=== PATIENT | female | born 1960 | race African-American/Black ===

== ENCOUNTER 2024-10-10 13:42 | Outpatient (AMB) | payer BC, SELFPAY ==
[2024-10-10 14:16] VITALS: BP 128/76; PULSE 59; O2SAT 99; BMI 36.4
--- NOTE | 2024-10-10 14:16 | A.OFFVIS_ITS ---
Vital Signs 10/10/24 14:16 Height 5 ft 7 in Weight 232 lb 8 oz BMI 36.4 BP 128/76 Blood Pressure Location Rt brachial Position Sitting Pulse 59 Pulse Source Pulse Oximeter Pulse Oximetry (%) 99 Oxygen Delivery Method Room Air Intake Visit Reasons: chronic cough Allergies Penicillins Allergy (Mild, Verified 10/10/24 14:01) Gastrointestinal Upset HPI HPI chronic cough: Details: Elaine is a pleasant 64 year old female, never smoker with underlying asthma, GERD and allergic rhinitis. She was referred by PCP for pulmonary evaluation for chronic cough. She reports cough is dry and occasionally productive with white sputum, wheezing and dyspnea with moderate exertion. Denies chest tightness or chest congestion. She was sent for CXR which was reportedly unremarkable. She was given albuterol MDI as well as prednisone with almost complete resolution of cough however once prednisone was completed, cough recurred. She reports asthma not formally diagnosed however on referral. Never required hospitalizations or intubations related to respiratory distress. She reports seasonal allergies, previously did allergen immunotherapy injections x 10+ years, stopped approximately 8 years ago. She takes xzyal PRN with moderate effect. She denies any recent allergy testing. She denies any pets. She reports multiple first degree family members with asthma. Review of Systems Const Denies chills, Denies excessive sweating, Denies fever(s), Denies headache(s) and Denies night sweats Eyes Denies dry eyes, Denies irritation and Denies itchy eyes ENT Reports Normal hearing present, Denies headache(s), Denies nasal congestion, Denies nasal discharge, Denies post nasal drip and Denies sore throat Card Denies chest pain, Denies chest pain at rest, Denies chest pain with activity, Denies claudication, Denies leg edema, Denies orthopnea and Denies paroxysmal nocturnal dyspnea Resp Denies chest congestion, Denies excessive phlegm production, Denies pain on inspiration, Denies pain with cough and Denies stridor Musc Denies myalgias Neuro Reports Normal hearing present and Denies headache(s) Endo Denies excessive sweating Austin/Lymph Denies lymphadenopathy Aller/Immun Denies itchy eyes and Denies seasonal rhinorrhea Physical Exam Const General: cooperative, healthy appearing, comfortable, no acute distress, well developed and alert Nutritional Appearance: obese Orientation/consciousness: patient oriented x3 Limitations: no limitations HEENT Head: Yes normal to inspection, Yes normocephalic and Yes atraumatic Ears: hearing grossly normal bilaterally and external ears normal Eyes General: appearance normal, both eyes and all related structures Eyelids: Yes eyelids normal Sclerae: sclerae normal EOM: EOMs intact bilaterally Neck Neck: Yes normal visual inspection and Yes no lymphadenopathy Lymphatic: no lymphadenopathy noted Chest Chest palpation & inspection: normal inspection of the chest Resp Effort & Inspection: normal respiratory effort, able to speak in complete sentences, no audible wheezes, no cough, no stridor, not tachypneic, no tripod positioning and no use of accessory muscles Auscultation: clear to auscultation bilaterally Cardio Jugular venous distension: no JVD Rate: regular rate Rhythm: regular rhythm Skin Other: warm, dry General skin exam: no rashes or lesions noted Neuro General: patient oriented x3 Cranial nerves: Yes Normal hearing present Cognition (Neuro): normal cognition Gait exam (Neuro): Normal gait present Extrem General: Yes normal to inspection, Yes capillary refill normal, Yes no clubbing, cyanosis or edema and Yes no pedal edema Psych Appearance: grossly normal and well kempt Speech and movement: Normal speech and movement present and Clear speech present Affect: normal affect Attitude: cooperative Thought process: Normal thought process present Thought content: Normal thought content present Insight: Good insight present (Psych) Judgement: Good judgement present (Psych) Assessment & Plan Assessment & Plan (1) Asthma: Code(s): J45.909 - Unspecified asthma, uncomplicated Category: Medical (2) Environmental allergies: Code(s): Z91.09 - Other allergy status, other than to drugs and biological substances Category: Medical (3) Chronic cough: Code(s): R05.3 - Chronic cough Category: Medical Plan Elaine presents for pulmonary evaluation for chronic cough likely related to poorly controlled asthma with an allergic component. Will send for PFT and RAST. Will also empirically start Breo. Discussed importance of good oral hygiene. All questions were answered and patient is in agreement of plan. Will followup in 6- 8 weeks or sooner if needed. Orders: Orders Complete Blood Count Auto Diff Today Z91.09 - Other allergy status, other than to drugs and biological substances Immunoglobulin E Today Z91.09 - Other allergy status, other than to drugs and biological substances Resp Allergy Profile Region I Today Z91.09 - Other allergy status, other than to drugs and biological substances PFT pulmonary function test Today J45.909 - Unspecified asthma, uncomplicated Medications: New fluticasone furoate-vilanterol 100-25 mcg/dose (Breo Ellipta) 1 inh inhalation DAILY 60 ea 3RF Coding Level of Care Code New Pt Level 4 (05666) Diagnoses Asthma J45.909 Environmental allergies Z91.09 Chronic cough R05.3
== END 2024-10-10 13:45 | disposition home or self-care (01) ==
LOC: HO.HPSW 13:42
PROVIDERS: PCP Internal Medicine; Referring Provider Internal Medicine; Visit Provider Nurse Practitioner Family
DX: J45.909 Unspecified asthma, uncomplicated (principal); Z91.09 Other allergy status, other than to drugs and biological substances; R05.3 Chronic cough
CPT/HCPCS: 99204

== ENCOUNTER 2024-10-10 14:14 | Outpatient (REF) | payer BC, SELFPAY ==
[2024-10-10 17:46] LABS: MANUAL DIFF FLAG NO
[2024-10-10 17:53] LABS: Basophils Absolute Auto 0.1 X10*3/uL (0.0-0.2); Basophils Percent Auto 1.3 % (0-2); Eosinophils Absolute Auto 0.1 X10*3/uL (0.0-0.4); Eosinophils Percent Auto 2.8 % (0-4); Hematocrit 36.2 % (37.0-47.0); Hemoglobin 11.4 g/dl (12.0-16.0); Imm Gran Abs Auto 0.02 X10*3/uL (0.00-0.03); Imm Gran Pct Auto 0.5 % (0.0-0.4); Lymphocytes Absolute Auto 1.3 X10*3/uL (1.2-4.9); Lymphocytes Percent Auto 33.3 % (20-40); Mean Corpuscular HGB Conc 31.5 g/dl (31.0-35.0); Mean Corpuscular Hemoglobin 28.5 pg (27.0-33.0); Mean Corpuscular Volume 90.5 fL (80.0-98.0); Mean Platelet Volume 9.7 fL (9.4-12.3); Monocytes Absolute Auto 0.6 X10*3/uL (0.1-1.2); Neutrophils Absolute Auto 1.9 x10*3/uL (2.0-8.3); Neutrophils Percent Auto 48.1 % (45-73); Platelet Count 257 X10*3/uL (160-400); Red Cell Distribution Width 14.8 % (11.0-16.0)
[2024-10-12 23:04] LABS: Class Alternaria alternata 0; Class Aspergillus fumigatus 0; Class Bermuda Grass 0; Class Birch 0; Class Cat Dander 0; Class Cladosporium herbarum 0; Class Cockroach 0; Class Common Ragweed 0; Class Cottonwood 0; Class Derm. pterony 0; Class Dermatophagoides farinae 0; Class Dog Dander 0; Class Elm 0; Class Maple Box Elder 0; Class Mountain Cedar 0; Class Mouse Urine Protein 0; Class Mugwort 0; Class Oak 0; Class Penicillium crysogenum 0; Class Rough Pigweed 0; Class Sheep Sorrel 0; Class Sycamore 0; Class Timothy Grass 0; Class Walnut Tree 0; Class White Ash 0; Class White Mulberry 0; D001 IgE D pteronyssinus <0.10 kU/L; D002 - IgE D farinae <0.10 kU/L; E001 - IgE Cat Dander <0.10 kU/L; E005 - IgE Dog Dander <0.10 kU/L; E072-IgE Mouse Urine <0.10 kU/L; G002 IgE Bermuda Grass <0.10 kU/L; G006 - IgE Timothy Grass <0.10 kU/L; I006-IgE Cockroach, German <0.10 kU/L; Immunoglobulin E 25 kU/L (<OR=114); Immunoglobulin E 26 kU/L (<OR=114); M001 IgE Penicillium chrysogen <0.10 kU/L; M002 - IgE Cladosporium herbar <0.10 kU/L; M003 - IgE Aspergillus fumigat <0.10 kU/L; M006 - IgE Alternaria alternat <0.10 kU/L; T001 IgE Maple/Box Elder <0.10 kU/L; T003 IgE Common Silver Birch <0.10 kU/L; T006 - IgE Cedar, Mountain <0.10 kU/L; T007 - IgE Oak, White <0.10 kU/L; T008 IgE Elm, American <0.10 kU/L; T010 - IgE Walnut <0.10 kU/L; T011 - IgE Maple Leaf Sycamore <0.10 kU/L; T014 - IgE Cottonwood <0.10 kU/L; T015 - IgE Ash, White <0.10 kU/L; T070 - IgE White Mulberry <0.10 kU/L; W001 - IgE Ragweed, Short <0.10 kU/L; W006 - IgE Mugwort <0.10 kU/L; W014 IgE Pigweed, Common <0.10 kU/L; W018 IgE Sheep Sorrel <0.10 kU/L
== END 2024-10-10 14:15 | disposition home or self-care (01) ==
LOC: HO.WFDLDS 14:14
PROVIDERS: Visit Provider Nurse Practitioner Family
DX: Z91.09 Other allergy status, other than to drugs and biological substances (principal)
CPT/HCPCS: 36415; 82785; 85025; 86003

== ENCOUNTER 2024-11-23 11:11 | Outpatient (AMB) | payer BC, SELFPAY ==
[2024-11-23 11:06] VITALS: BP 142/80; PULSE 72; O2SAT 99; BMI 35.9
--- NOTE | 2024-11-23 11:06 | A.OFFVIS_ITS ---
Vital Signs 11/23/24 11:06 Height 5 ft 7 in Weight 229 lb 6 oz BMI 35.9 BP 142/80 H Blood Pressure Location Rt brachial Position Sitting Pulse 72 Pulse Source Pulse Oximeter Pulse Oximetry (%) 99 Oxygen Delivery Method Room Air Intake Visit Reasons: chronic cough Allergies Penicillins Allergy (Mild, Verified 11/23/24 11:14) Gastrointestinal Upset HPI HPI chronic cough: Details: Elaine is a pleasant 64 year old female, never smoker with underlying asthma, GERD and allergic rhinitis. She was initially referred for chronic cough. At the last visit she was started on Breo, as she had been using albuterol frequently and reports near resolution of cough. She denies dyspnea, chest tightness or chest congestion. She was also sent for PFT which is scheduled later this month. She denies any visits to urgent care or hospitalizations related to respiratory distress since last visit. Today she presents to review RAST. [facility] Social History (Updated 11/23/24 @ 11:14 by Pascale Benavides [facility]) Patient Tobacco Use Status: Never used Tobacco Review of Systems Const Denies chills, Denies excessive sweating, Denies fever(s), Denies headache(s) and Denies night sweats Eyes Denies dry eyes, Denies irritation and Denies itchy eyes ENT Reports Normal hearing present, Denies headache(s), Denies nasal congestion, Denies nasal discharge, Denies post nasal drip and Denies sore throat Card Denies chest pain, Denies chest pain at rest, Denies chest pain with activity, Denies claudication, Denies leg edema, Denies orthopnea and Denies paroxysmal nocturnal dyspnea Resp Denies chest congestion, Denies excessive phlegm production, Denies pain on inspiration, Denies pain with cough and Denies stridor Musc Denies myalgias Neuro Reports Normal hearing present and Denies headache(s) Endo Denies excessive sweating Austin/Lymph Denies lymphadenopathy Aller/Immun Denies itchy eyes and Denies seasonal rhinorrhea Physical Exam Vital Signs: Last Vital Signs Pulse 72 11/23/24 11:06 BP 142/80 H 11/23/24 11:06 Pulse Ox 99 11/23/24 11:06 Oxygen Delivery Method Room Air 11/23/24 11:06 BMI result Body Mass Index 35.9 Const General: cooperative, healthy appearing, comfortable, no acute distress, well developed and alert Nutritional Appearance: obese Orientation/consciousness: patient oriented x3 Limitations: no limitations HEENT Head: Yes normal to inspection, Yes normocephalic and Yes atraumatic Ears: hearing grossly normal bilaterally and external ears normal Eyes General: appearance normal, both eyes and all related structures Eyelids: Yes eyelids normal Sclerae: sclerae normal EOM: EOMs intact bilaterally Neck Neck: Yes normal visual inspection and Yes no lymphadenopathy Lymphatic: no lymphadenopathy noted Chest Chest palpation & inspection: normal inspection of the chest Resp Effort & Inspection: normal respiratory effort, able to speak in complete sentences, no audible wheezes, no cough, no stridor, not tachypneic, no tripod positioning and no use of accessory muscles Auscultation: clear to auscultation bilaterally Cardio Jugular venous distension: no JVD Rate: regular rate Rhythm: regular rhythm Skin Other: warm, dry General skin exam: no rashes or lesions noted Neuro General: patient oriented x3 Cranial nerves: Yes Normal hearing present Cognition (Neuro): normal cognition Gait exam (Neuro): Normal gait present Extrem General: Yes normal to inspection, Yes capillary refill normal, Yes no clubbing, cyanosis or edema and Yes no pedal edema Psych Appearance: grossly normal and well kempt Speech and movement: Normal speech and movement present and Clear speech present Affect: normal affect Attitude: cooperative Thought process: Normal thought process present Thought content: Normal thought content present Insight: Good insight present (Psych) Judgement: Good judgement present (Psych) Assessment & Plan Assessment & Plan (1) Asthma: Code(s): J45.909 - Unspecified asthma, uncomplicated Category: Medical (2) Chronic cough: Code(s): R05.3 - Chronic cough Category: Medical Plan Reviewed RAST which was negative, eosinophils/IgE WNL. At this time, she reports symptoms are well controlled with Breo, with minimal use of albuterol MDI, advised to continue. Will review PFT results when available. All questions were answered and patient is in agreement of plan. Will followup in 3-6 months or sooner if needed. Coding Level of Care Code Est Pt Level 4 (95537) Diagnoses Asthma J45.909 Chronic cough R05.3
== END 2024-11-23 11:31 | disposition home or self-care (01) ==
PROVIDERS: PCP Internal Medicine; Visit Provider Nurse Practitioner Family
DX: J45.909 Unspecified asthma, uncomplicated (principal); R05.3 Chronic cough
CPT/HCPCS: 99214

== ENCOUNTER → 2024-11-23 11:11 | Outpatient (BNVA) | payer BC, SELFPAY | PROVIDERS: PCP Internal Medicine; Visit Provider Nurse Practitioner Family ==

== ENCOUNTER 2024-11-28 12:39 | Outpatient (REF) | payer BC, SELFPAY ==
--- NOTE | 2024-11-28 12:59 | PFT_ITS ---
Flows: FEV1: 101 % of predicted at 2.27 L FVC: 2.69 % of predicted at 94 L FEV1/FVC: 84 % Bronchodilator response: Absent Volumes: Total lung capacity: 70 % of predicted at 3.93 L Residual volume: 49 % of predicted at 1.00 L Slow vital capacity: 83 % of predicted at 2.93 L Expiratory reserve volume: 60 % of predicted at 0.60 L Diffusion capacity: Normal Impression: Mild restrictive ventilatory defect with no bronchodilator response. Decreased expiratory reserve volume suggests extrathoracic restriction likely secondary to abdominal obesity. MTDD
== END 2024-11-28 12:40 | disposition home or self-care (01) ==
LOC: HO.RESP 12:39
PROVIDERS: PCP Internal Medicine; Visit Provider Nurse Practitioner Family
DX: J45.909 Unspecified asthma, uncomplicated (principal)
CPT/HCPCS: 94010; 94640; 94727; 94729

== ENCOUNTER → 2024-11-28 12:59 | Outpatient (BNV) | payer BC, SELFPAY | PROVIDERS: PCP Internal Medicine; Visit Provider Internal Medicine Pulmonary Disease | DX: J45.909 Unspecified asthma, uncomplicated (principal) | CPT/HCPCS: 94060; 94727; 94729 ==

== ENCOUNTER 2025-06-21 13:50 | Outpatient (AMB) | payer BC, SELFPAY ==
[2025-06-21 13:52] VITALS: BP 152/94; PULSE 73; O2SAT 99; BMI 37.2
--- NOTE | 2025-06-21 13:52 | MHC.OFFVIS ---
Vital Signs 06/21/25 13:52 Height 5 ft 7 in Weight 237 lb 8 oz BMI 37.2 BP 152/94 H Blood Pressure Location Rt brachial Position Sitting Pulse 73 Pulse Source Pulse Oximeter Pulse Oximetry (%) 99 Oxygen Delivery Method Room Air Intake Visit Reasons: Asthma Allergies Penicillins Allergy (Mild, Verified 06/21/25 13:56) Gastrointestinal Upset HPI HPI Asthma: Details: Elaine is a pleasant 64 year old female, never smoker with underlying asthma, GERD and allergic rhinitis. She was initially referred for chronic cough. At the last visit she was started on Breo, as she had been using albuterol frequently and reports near resolution of cough. Since last visit patient has stopped using Breo and has had no respiratory symptoms over the last few months. Today she presents to review PFT results. She denies any visits to urgent care hospitalizations related to respiratory distress since the last visit. [facility] Social History (Updated 11/23/24 @ 11:14 by Pascale Benavides [facility]) Patient Tobacco Use Status: Never used Tobacco Review of Systems Const Denies chills, Denies excessive sweating, Denies fever(s), Denies headache(s) and Denies night sweats Eyes Denies dry eyes, Denies irritation and Denies itchy eyes ENT Reports Normal hearing present, Denies headache(s), Denies nasal congestion, Denies nasal discharge, Denies post nasal drip and Denies sore throat Card Denies chest pain, Denies chest pain at rest, Denies chest pain with activity, Denies claudication, Denies leg edema, Denies dyspnea, Denies dyspnea on exertion, Denies orthopnea and Denies paroxysmal nocturnal dyspnea Resp Denies chest congestion, Denies cough, Denies excessive phlegm production, Denies pain on inspiration, Denies pain with cough, Denies dyspnea, Denies dyspnea on exertion, Denies stridor and Denies wheezing Musc Denies myalgias Neuro Reports Normal hearing present and Denies headache(s) Endo Denies excessive sweating Austin/Lymph Denies lymphadenopathy Aller/Immun Denies itchy eyes, Denies seasonal rhinorrhea and Denies wheezing Physical Exam Vital Signs: Last Vital Signs Pulse 73 06/21/25 13:52 BP 152/94 H 06/21/25 13:52 Pulse Ox 99 06/21/25 13:52 Oxygen Delivery Method Room Air 06/21/25 13:52 BMI result Body Mass Index 37.2 Const General: cooperative, healthy appearing, comfortable, no acute distress, well developed and alert Nutritional Appearance: obese Orientation/consciousness: patient oriented x3 Limitations: no limitations HEENT Head: Yes normal to inspection, Yes normocephalic and Yes atraumatic Ears: hearing grossly normal bilaterally and external ears normal Eyes General: appearance normal, both eyes and all related structures Eyelids: Yes eyelids normal Sclerae: sclerae normal EOM: EOMs intact bilaterally Neck Neck: Yes normal visual inspection and Yes no lymphadenopathy Lymphatic: no lymphadenopathy noted Chest Chest palpation & inspection: normal inspection of the chest Resp Effort & Inspection: normal respiratory effort, able to speak in complete sentences, no audible wheezes, no cough, no stridor, not tachypneic, no tripod positioning and no use of accessory muscles Auscultation: clear to auscultation bilaterally Cardio Jugular venous distension: no JVD Rate: regular rate Rhythm: regular rhythm Skin Other: warm, dry General skin exam: no rashes or lesions noted Neuro General: patient oriented x3 Cranial nerves: Yes Normal hearing present Cognition (Neuro): normal cognition Gait exam (Neuro): Normal gait present Extrem General: Yes normal to inspection, Yes capillary refill normal, Yes no clubbing, cyanosis or edema and Yes no pedal edema Psych Appearance: grossly normal and well kempt Speech and movement: Normal speech and movement present and Clear speech present Affect: normal affect Attitude: cooperative Thought process: Normal thought process present Thought content: Normal thought content present Insight: Good insight present (Psych) Judgement: Good judgement present (Psych) Assessment & Plan Assessment & Plan (1) Asthma: Code(s): J45.909 - Unspecified asthma, uncomplicated Category: Medical Plan Reviewed PFT which revealed mild restrictive ventilatory defect with no bronchodilator response. Decreased expiratory reserve volume suggests extrathoracic restriction likely secondary to abdominal obesity. DLCO within normal limits. At this time she reports good control of respiratory symptoms without the need for medications. She is aware to call the office if symptoms change. All questions were answered and patient is in agreement of plan. Will follow-up as needed. Coding Level of Care Code Est Pt Level 3 (23473) Diagnoses Asthma J45.909
== END 2025-06-21 14:15 | disposition home or self-care (01) ==
LOC: HO.HPSW 13:51
PROVIDERS: PCP Internal Medicine; Visit Provider Nurse Practitioner Family
DX: J45.909 Unspecified asthma, uncomplicated (principal)
CPT/HCPCS: 99213